=== PATIENT | male | born 1985 | race Caucasian/White ===

== ENCOUNTER → 2017-12-01 | Outpatient (REF) | payer BC ==
[2017-12-01 11:44] LABS: HEMATOCRIT 45.4 % (42.0-52.0); HEMOGLOBIN 15.9 g/dl (14.0-18.0); MEAN CORPUSCULAR HEMOGLOBIN 30.8 pg (27.0-33.0); MEAN CORPUSCULAR VOLUME 87.8 fl (80.0-96.0); PLATELET COUNT, AUTOMATED 204 10^3/uL (150-450); RED BLOOD COUNT 5.17 10^6/uL (4.30-6.10); RED CELL DISTRIBUTION WIDTH 11.4 % (11.5-14.5); WHITE BLOOD COUNT 5.4 10^3/uL (4.0-10.0)
[2017-12-01 12:18] LABS: ALBUMIN 4.2 GM/DL (3.2-5.2); ALBUMIN/GLOBULIN RATIO 1.35 (1.00-1.93); ALKALINE PHOSPHATASE 49 U/L (45-117); ALT/SGPT 35 U/L (12-78); ANION GAP 6 MEQ/L (8-16); AST/SGOT 18 U/L (7-37); BILIRUBIN,TOTAL 0.4 MG/DL (0.2-1.0); BLOOD UREA NITROGEN 14 MG/DL (7-18); CALCIUM LEVEL 9.2 MG/DL (8.5-10.1); CARBON DIOXIDE LEVEL 29 MEQ/L (21-32); CHLORIDE LEVEL 106 MEQ/L (98-107); CHOLESTEROL LEVEL 214 MG/DL (<200); CHOLESTEROL RISK RATIO 4.976 (<5); GLOMERULAR FILTRATION RATE > 60.0 (>60); GLUCOSE, FASTING 99 MG/DL (70-100); HDL CHOLESTEROL 43 MG/DL (>40); LDL CHOLESTEROL 155.2 MG/DL (<100); NON-HDL-C 171 MG/DL; POTASSIUM SERUM 4.6 MEQ/L (3.5-5.1); SODIUM LEVEL 141 MEQ/L (136-145); THYROID STIMULATING HORMONE 0.963 uIU/ML (0.358-3.740); TOTAL PROTEIN 7.3 GM/DL (6.4-8.2); TRIGLYCERIDES LEVEL 79 MG/DL (<150)
[2017-12-01 13:01] LABS: ESTIMATED AVERAGE GLUCOSE 108 MG/DL (60-110); HEMOGLOBIN A1c 5.4 %
== END ==
LOC: M SFHCLERA 08:32
DX: E66.09 Other obesity due to excess calories (principal)
CPT/HCPCS: 84443

== ENCOUNTER → 2019-01-05 | Outpatient (CLI) | payer BC ==
[2019-01-05 07:55] LABS: HEMOGLOBIN A1c 5.2 %
[2019-01-05 07:57] LABS: CHOLESTEROL RISK RATIO 3.969 (<5)
== END ==
LOC: M LAB 06:58
PROVIDERS: ATTEND Family Medicine
DX: E66.09 Other obesity due to excess calories (principal)

== ENCOUNTER → 2019-04-19 | Outpatient (CLI) | payer BC ==
--- NOTE | 2019-04-19 16:50 | REP ---
Bilateral rib series: Eight views including PA chest. History: Cough. Findings: PA chest radiograph shows no evidence of pneumothorax or hydrothorax. There are some increased interstitial markings in the right base, which may reflect viral or bronchospastic etiology. Mediastinum is not widened. Heart size is normal. Multiple views of the right and left ribs show no visible rib fracture or bony destructive lesion. Impression: Subtle interstitial infiltrate changes right base. Question viral pneumonia or bronchospastic changes. Otherwise negative PA chest and bilateral rib series. Electronically Signed by Som Delcid MD 04/19/2019 07:25 P
== END ==
LOC: M LRY 15:51
PROVIDERS: ATTEND Nurse Practitioner Family
DX: R91.8 Other nonspecific abnormal finding of lung field (principal)

== ENCOUNTER → 2021-06-10 | Outpatient (REF) | payer BC | LOC: M LAB REF 16:26 | PROVIDERS: ATTEND Physician Assistant Medical | DX: H73.11 Chronic myringitis, right ear (principal) ==